=== PATIENT | female | born 1950 | race Hispanic/Latino ===

== ENCOUNTER → 2017-12-10 | Outpatient (CLI) | payer OTHER ==
[~2017-12-10] MED LIST: ASPI-1197 PO; DIPH25 PO; FAMO20TA8 PO; LEVO100T12 PO; LISI10TA7 PO; METF-445 PO; MIRA50TA PO; OLOP2.5D OP; OMEP20CA10 PO; PREG50 PO; SIMV40TA59 PO; TERB250T51 PO
== END | disposition home or self-care (01) ==
LOC: RAH 13:22
PROVIDERS: ATTEND Internal Medicine
DX: H81.49 Vertigo of central origin, unspecified ear (principal)
CPT/HCPCS: 70450

== ENCOUNTER → 2023-08-25 | Outpatient (CLI) | payer OTHER ==
[~2023-08-25] MED LIST changes: +DIPH-1242 PO; -DIPH25 PO; +LISI10TA24 PO; -LISI10TA7 PO; -OLOP2.5D OP; +OLOP2.5D12 OP; -OMEP20CA10 PO; +OMEP20CA12 PO; -TERB250T51 PO; +TERB250T89 PO
== END | disposition home or self-care (01) ==
LOC: RAH 10:08
PROVIDERS: ATTEND Internal Medicine Gastroenterology
DX: R14.0 Abdominal distension (gaseous) (principal); R11.0 Nausea
CPT/HCPCS: 78264; A9541